=== PATIENT | female | born 1975 | race Caucasian/White ===

== ENCOUNTER 2016-06-16 19:25 | Emergency (ER) | payer OTHER ==
[~2016-06-16] VITALS: Ht 160 cm; Wt 66.7 kg
[2016-06-16 21:14] LABS: microscopic required? NO
[2016-06-16 21:28] LABS: CALCIUM 9.3 mg/dL (8.5-10.1); CARBON DIOXIDE 32.9 mmol/L (21-32); CHLORIDE SERUM 101 mmol/L (98-107); CREATININE SERUM 0.7 mg/dL (0.6-1.0); GFR1 > 60 mL/min; GLUCOSE SERUM 86 mg/dL (74-106); POTASSIUM SERUM 4.1 mmol/L (3.5-5.1); SODIUM SERUM 140 mmol/L (136-145)
[2016-06-16 21:32] LABS: ALBUMIN 4.4 g/dL (3.4-5.0); ALKALINE PHOSPHATASE 50 U/L (46-116); ALT/SGPT 7 U/L (14-59); AST/SGOT 10 U/L (15-37); BILIRUBIN TOTAL 0.37 mg/dL (0.20-1.00); CHOLESTEROL 188 mg/dL (<200); CHOLESTEROL/HDL RATIO 3.3; HDL CHOLESTEROL 57 mg/dL (40-60); LIPASE 252 IU/L (73-393); TOTAL PROTEIN, SERUM 7.8 g/dL (6.4-8.2); TRIGLYCERIDES 66 mg/dL (<150)
[2016-06-16 21:38] LABS: BASOPHIL % 0.6 % (0-2); PLATELET COUNT 250 x10^3mcL (130-400); RED CELL DISTRIBUTION WIDTH 13.2 % (11.5-14.5)
[2016-06-16 21:45] LABS: UA SPECIFIC GRAVITY 1.015 (1.005-1.035); urine erythrocyte NEGATIVE (NEGATIVE)
[2016-06-16 21:49] LABS: FREE T4 1.36 ng/dL (0.76-1.46); FREE THYROXINE INDEX 3.9 ug/dL (1.4-4.5); T4(THYROXINE) 10.8 ug/dL (4.7-13.3)
[2016-06-16 22:02] LABS: T3 TOTAL 1.35 ng/mL
[2016-06-16 23:10] VITALS: BP 114/82
== END 2016-06-16 23:10 | disposition home or self-care (01) ==
LOC: ED 19:25
PROVIDERS: Specialist
DX: R10.12 Left upper quadrant pain (principal); I10 Essential (primary) hypertension; M79.7 Fibromyalgia; Z87.11 Personal history of peptic ulcer disease
CPT/HCPCS: 83880; 84439; J1885; J7030

== ENCOUNTER 2019-02-25 16:03 | Emergency (ER) | payer SELFPAY ==
[~2019-02-25] VITALS: Ht 160 cm; Wt 79.4 kg
[2019-02-25 16:16] VITALS: Ht 160 cm; Wt 79.4 kg
[2019-02-25 18:36] LABS: PLATELET COUNT 258 x10^3mcL (130-400); RED CELL DISTRIBUTION WIDTH 14.4 % (11.5-14.5)
[2019-02-25 18:39] LABS: CALCIUM 9.3 mg/dL (8.5-10.1); CARBON DIOXIDE 31.5 mmol/L (21-32); CHLORIDE SERUM 103 mmol/L (98-107); CREATININE SERUM 0.8 mg/dL (0.6-1.0); GFR1 > 60 mL/min; GLUCOSE SERUM 83 mg/dL (74-106); POTASSIUM SERUM 4.7 mmol/L (3.5-5.1); SODIUM SERUM 139 mmol/L (136-145)
[2019-02-25 18:42] LABS: ALBUMIN 4.1 g/dL (3.4-5.0); ALKALINE PHOSPHATASE 56 U/L (46-116); ALT/SGPT 24 U/L (14-59); AST/SGOT 11 U/L (15-37); BILIRUBIN TOTAL 0.29 mg/dL (0.20-1.00); LIPASE 246 IU/L (73-393)
[2019-02-25 18:43] VITALS: BP 109/77
== END 2019-02-25 19:46 | disposition home or self-care (01) ==
LOC: ED 16:03
PROVIDERS: Emergency Medicine
DX: R19.7 Diarrhea, unspecified (principal); R10.30 Lower abdominal pain, unspecified; R09.89 Other specified symptoms and signs involving the circulatory and respiratory systems

== ENCOUNTER 2019-09-15 16:33 | Emergency (ER) | payer OTHER ==
[~2019-09-15] VITALS: Ht 160 cm; Wt 77.1 kg
[2019-09-15 16:43] VITALS: Ht 160 cm; Wt 77.1 kg
[2019-09-15 21:41] VITALS: BP 111/67
== END 2019-09-15 21:41 | disposition home or self-care (01) ==
LOC: ED 16:33
DX: R42 Dizziness and giddiness (principal); I10 Essential (primary) hypertension; M79.7 Fibromyalgia; Z88.5 Allergy status to narcotic agent; Z88.6 Allergy status to analgesic agent; Z88.8 Allergy status to other drugs, medicaments and biological substances
CPT/HCPCS: J2060; J2405; J7030; J8597